=== PATIENT | male | born 1985 | race Caucasian/White ===

== ENCOUNTER → 2021-06-26 | Outpatient (CLI) | payer OTHER ==
[~2021-06-26] MED LIST: CLAR10CA3 PO; FERR325T19 PO; VITA500C24 PO
== END ==
LOC: M LABSMTC 10:49
PROVIDERS: ATTEND Anesthesiology
DX: Z01.818 Encounter for other preprocedural examination (principal); Z11.52 Encounter for screening for COVID-19

== ENCOUNTER 2021-07-01 12:12 | Day surgery (SDC) | payer OTHER ==
[~2021-07-01] VITALS: Ht 165.1 cm; Wt 84.4 kg
[~2021-07-01 12:12] MED LIST changes: +NS 1,000 ML IV ONE
--- OUTSIDE RECORDS SUMMARY | 2021-07-01 12:15 | CCD | Continuity of Care Document ---
Author Author Serafin COTTO MD Organization Unknown Address [address] [place] [id number] Phone [phone] Care Team Providers Care Guitar Maker Name Role Phone Omer Liriano M.D. AUTM [phone] Kathy Bullock AUTM [phone] Problems Description No Active Problems Social History Type Date Description Comments Sex Unknown ETOH Use 3 A Week Tobacco Use Start: Unknown Non Smoker Allergies, Adverse Reactions, Alerts Active Allergies Reaction Severity Comments Date Morphine 04/01/2021 Kefzol 04/01/2021 Medications Active Medications SIG Qnty Indications Ordering Provide r Date Ferosul 325(65Fe) mg Tablets tid Unknown Vitamin C 500mg Tablets Idt Unknown Immunizations Description No Information Available Vital Signs Date Vital Result Comment 04/01/2021 8:57am BP Systolic 120 mmHg BP Diastolic 82 mmHg Height 65 inches 5'5" Weight 190.00 lb BMI (Body Mass Index) 31.6 kg/m2 [place] Body Weight 136 lb Weight 86.184 kg BSA (Body Surface Area) 1.94 m2 Results Description No Information Available Procedures Date Code Description Status 04/01/2021 29290 Office/Outpatient New Low MDM 30 -44 Minutes Completed Medical Devices Description No Information Available Encounters Type Date Location Provider Dx Diagnosis Office Visit 04/01/2021 8:45a [facility] Kane Cotto MD D50.9 Iron deficiency anemia, unsp ecified K64.9 Unspecified hemorrhoids Assessments Date Code Description Provider 04/01/2021 D50.9 Iron deficiency anemia, unspecif ied Kane Cotto MD 04/01/2021 K64.9 Unspecified hemorrhoids Kane sylvester MD Plan of Treatment 04/01/2021 - Kane Cotto MD* D50.9 Iron deficiency anemia, unspecified * K64.9 Unspecified hemorrhoids * * Comments:* Pt with Hx frequent hemorrhoidal bleeding in past. has had banding. He was found to be iron deficient. Has had normal colonoscopy in 2019. never had EGD nor SB eval for anemia * Recommendations:* celiac marker and/or duodenal biopsy EGD Capsule if negative EGD Functional Status Description No Information Available Mental Status Description No Information Available Referrals Refer to Reason for Referral Status Appt Date Kane Cotto M.D. ANEMIA Scheduled 04/01/2021 [facility], Gastroenterology [address], [address] [place] [address] [phone]
--- OUTSIDE RECORDS SUMMARY | 2021-07-01 12:16 | CCD ---
Author Author [facility] Organization [facility] Address Unknown Phone Unavailable Care Team Providers Care Lactation Specialist Name Role Phone CHRISTINE COTTO MD Unavailable Unavailable CHRISTINE COTTO MD Unavailable Unavailable CHRISTINE COTTO MD Unavailable Unavailable CHRISTINE COTTO MD Unavailable Unavailable CHRISTINE COTTO MD Unavailable Unavailable CHRISTINE COTTO MD Unavailable Unavailable CHRISTINE COTTO MD Unavailable Unavailable CHRISTINE COTTO MD Unavailable Unavailable CHRISTINE COTTO MD Unavailable Unavailable CHRISTINE COTTO MD Unavailable Unavailable CHRISTINE COTTO MD Unavailable Unavailable CHRISTINE COTTO MD Unavailable Unavailable CHRISTINE COTTO MD Unavailable Unavailable CHRISTINE COTTO MD Unavailable Unavailable CHRISTINE COTTO MD Unavailable Unavailable CHRISTINE COTTO MD Unavailable Unavailable CHRISTINE COTTO MD Unavailable Unavailable CHRISTINE COTTO MD Unavailable Unavailable CHRISTINE COTTO MD Unavailable Unavailable CHRISTINE COTTO MD Unavailable Unavailable CHRISTINE COTTO MD Unavailable Unavailable CHRISTINE COTTO MD Unavailable Unavailable CHRISTINE COTTO MD Unavailable Unavailable CHRISTINE COTTO MD Unavailable Unavailable CHRISTINE COTTO MD Unavailable Unavailable CHRISTINE COTTO MD Unavailable Unavailable CHRISTINE COTTO MD Unavailable Unavailable CHRISTINE COTTO MD Unavailable Unavailable CHRISTINE COTTO MD Unavailable Unavailable REINDL, CHRISTINE BETH Unavailable Unavailable REINDL, CHRISTINE BETH Unavailable Unavailable REINDL, CHRISTINE BETH Unavailable Unavailable REINDL, CHRISTINE BETH Unavailable Unavailable REINDL, CHRISTINE BETH Unavailable Unavailable REINDL, CHRISTINE BETH Unavailable Unavailable REINDL, CHRISTINE BETH Unavailable Unavailable REINDL, CHRISTINE BETH Unavailable Unavailable REINDL, CHRISTINE BETH Unavailable Unavailable REINDL, CHRISTINE BETH Unavailable Unavailable REINDL, CHRISTINE BETH Unavailable Unavailable REINDL, CHRISTINE BETH Unavailable Unavailable REINDL, CHRISTINE BETH Unavailable Unavailable LETTIERE, A CHALINO PA Unavailable Unavailable LETTIERE, A CHALINO PA Unavailable Unavailable LETTIERE, A CHALINO PA Unavailable Unavailable LETTIERE, A CHALINO PA Unavailable Unavailable LETTIERE, A CHALINO PA Unavailable Unavailable LETTIERE, A CHALINO PA Unavailable Unavailable LETTIERE, A CHALINO PA Unavailable Unavailable LETTIERE, A CHALINO PA Unavailable Unavailable LETTIERE, A CHALINO PA Unavailable Unavailable LETTIERE, A CHALINO PA Unavailable Unavailable LETTIERE, A CHALINO PA Unavailable Unavailable LETTIERE, A CHALINO PA Unavailable Unavailable LETTIERE, A CHALINO PA Unavailable Unavailable LETTIERE, A CHALINO PA Unavailable Unavailable LETTIERE, A CHALINO PA Unavailable Unavailable LETTIERE, A CHALINO PA Unavailable Unavailable LETTIERE, A CHALINO PA Unavailable Unavailable LETTIERE, A CHALINO PA Unavailable Unavailable LETTIERE, A CHALINO PA Unavailable Unavailable LETTIERE, A CHALINO PA Unavailable Unavailable LETTIERE, A CHALINO PA Unavailable Unavailable LETTIERE, A CHALINO PA Unavailable Unavailable LETTIERE, A CHALINO PA Unavailable Unavailable LETTIERE, A CHALINO PA Unavailable Unavailable LETTIERE, A CHALINO PA Unavailable Unavailable LETTIERE, A CHALINO PA Unavailable Unavailable LETTIERE, A CHALINO PA Unavailable Unavailable LETTIERE, A CHALINO PA Unavailable Unavailable LETTIERE, A CHALINO PA Unavailable Unavailable LETTIERE, A CHALINO PA Unavailable Unavailable LETTIERE, A CHALINO PA Unavailable Unavailable Kobe, H RAISED PRINTER Unavailable Unavailable Kobe, H RAISED PRINTER Unavailable Unavailable Kobe, H RAISED PRINTER Unavailable Unavailable Kobe, H RAISED PRINTER Unavailable Unavailable Kobe, H RAISED PRINTER Unavailable Unavailable Kobe, H RAISED PRINTER Unavailable Unavailable Kobe, H RAISED PRINTER Unavailable Unavailable Kobe, H RAISED PRINTER Unavailable Unavailable Kobe, H RAISED PRINTER Unavailable Unavailable Kobe, H RAISED PRINTER Unavailable Unavailable Kobe, H RAISED PRINTER Unavailable Unavailable Kobe, H RAISED PRINTER Unavailable Unavailable Kobe, H RAISED PRINTER Unavailable Unavailable Kobe, H RAISED PRINTER Unavailable Unavailable Kobe, H RAISED PRINTER Unavailable Unavailable Kobe, H RAISED PRINTER Unavailable Unavailable Kobe, H RAISED PRINTER Unavailable Unavailable Kobe, H RAISED PRINTER Unavailable Unavailable Kobe, H RAISED PRINTER Unavailable Unavailable Kobe, H RAISED PRINTER Unavailable Unavailable Kobe, H RAISED PRINTER Unavailable Unavailable Kobe, H RAISED PRINTER Unavailable Unavailable Kobe, H RAISED PRINTER Unavailable Unavailable Kobe, H RAISED PRINTER Unavailable Unavailable Kobe, H RAISED PRINTER Unavailable Unavailable Kobe, H RAISED PRINTER Unavailable Unavailable Kobe, H RAISED PRINTER Unavailable Unavailable Kobe, H RAISED PRINTER Unavailable Unavailable Kobe, H RAISED PRINTER Unavailable Unavailable Kobe, H RAISED PRINTER Unavailable Unavailable Kobe, H RAISED PRINTER Unavailable Unavailable Kobe, H RAISED PRINTER Unavailable Unavailable Kobe, H RAISED PRINTER Unavailable Unavailable Kobe, H RAISED PRINTER Unavailable Unavailable Kobe, H RAISED PRINTER Unavailable Unavailable Kobe, H RAISED PRINTER Unavailable Unavailable Kobe, H RAISED PRINTER Unavailable Unavailable Kobe, H RAISED PRINTER Unavailable Unavailable Kobe, H RAISED PRINTER Unavailable Unavailable Kobe, H RAISED PRINTER Unavailable Unavailable Kobe, H RAISED PRINTER Unavailable Unavailable Kobe, H RAISED PRINTER Unavailable Unavailable Kobe, H RAISED PRINTER Unavailable Unavailable Kobe, H RAISED PRINTER Unavailable Unavailable Kobe, H RAISED PRINTER Unavailable Unavailable Kobe, H RAISED PRINTER Unavailable Unavailable Kobe, H RAISED PRINTER Unavailable Unavailable Kobe, H RAISED PRINTER Unavailable Unavailable Kobe, H RAISED PRINTER Unavailable Unavailable Kobe, H RAISED PRINTER Unavailable Unavailable Kobe, H RAISED PRINTER Unavailable Unavailable Kobe, H RAISED PRINTER Unavailable Unavailable Kobe, H RAISED PRINTER Unavailable Unavailable Kobe, H RAISED PRINTER Unavailable Unavailable Kobe, H RAISED PRINTER Unavailable Unavailable Kobe, H RAISED PRINTER Unavailable Unavailable Kobe, H RAISED PRINTER Unavailable Unavailable Kobe, H RAISED PRINTER Unavailable Unavailable Kobe, H RAISED PRINTER Unavailable Unavailable Doctor Provided, Family PHYS No Family Unavailable U navailable Jenny Reddy MD Unavailable Unavailable Jenny Reddy MD Unavailable Unavailable Jenny Reddy MD Unavailable Unavailable Jenny Reddy MD Unavailable Unavailable Jenny Reddy MD Unavailable Unavailable Jenny Reddy MD Unavailable Unavailable Jenny Reddy MD Unavailable Unavailable Jenny Reddy MD Unavailable Unavailable Jenny Reddy MD Unavailable Unavailable Jenny Reddy MD Unavailable Unavailable Jenny Reddy MD Unavailable Unavailable Jenny Reddy MD Unavailable Unavailable Jenny Reddy MD Unavailable Unavailable Jenny Reddy MD Unavailable Unavailable Jenny Reddy MD Unavailable Unavailable Jenny Reddy MD Unavailable Unavailable Jenny Reddy MD Unavailable Unavailable Jenny Reddy MD Unavailable Unavailable Jenny Reddy MD Unavailable Unavailable Jenny Reddy MD Unavailable Unavailable Jenny Reddy MD Unavailable Unavailable Jenny Reddy MD Unavailable Unavailable Jenny Reddy MD Unavailable Unavailable Jenny Reddy MD Unavailable Unavailable Jenny Reddy MD Unavailable Unavailable Jenny Reddy MD Unavailable Unavailable Jenny Reddy MD Unavailable Unavailable Jenny Reddy MD Unavailable Unavailable Jenny Reddy MD Unavailable Unavailable Jenny Reddy MD Unavailable Unavailable Jenny Reddy MD Unavailable Unavailable Jenny Reddy MD Unavailable Unavailable Jenny Reddy MD Unavailable Unavailable Jenny Reddy MD Unavailable Unavailable Jenny Reddy MD Unavailable Unavailable Jenny Reddy MD Unavailable Unavailable Jenny Reddy MD Unavailable Unavailable Jenny Reddy MD Unavailable Unavailable Jenny Reddy MD Unavailable Unavailable Jenny Reddy MD Unavailable Unavailable Jenny Reddy MD Unavailable Unavailable Jenny Reddy MD Unavailable Unavailable Jenny Reddy MD Unavailable Unavailable Jenny Reddy MD Unavailable Unavailable Jenny WILDER MD Unavailable Unavailable Jenny WILDER MD Unavailable Unavailable Jenny WILDER MD Unavailable Unavailable Jenny WILDER MD Unavailable Unavailable Julia, Ignacia Ghosh MD Unavailable Unavailable Julia, Ignacia Ghosh MD Unavailable Unavailable Julia, Ignacia Ghosh MD Unavailable Unavailable Julia, Ignacia Ghosh MD Unavailable Unavailable Julia, Ignacia Ghosh MD Unavailable Unavailable Julia, Ignacia Ghosh MD Unavailable Unavailable Julia, Ignacia Ghosh MD Unavailable Unavailable Julia, Ignacia Ghosh MD Unavailable Unavailable Julia, Ignacia Ghosh MD Unavailable Unavailable Julia, Ignacia Ghosh MD Unavailable Unavailable Julia, Ignacia Ghosh MD Unavailable Unavailable Julia, Ignacia Ghosh MD Unavailable Unavailable Julia, Ignacia Ghosh MD Unavailable Unavailable Julia, Ignacia Ghosh MD Unavailable Unavailable Julia, Ignacia Ghosh MD Unavailable Unavailable Julia, Ignacia Ghosh MD Unavailable Unavailable Julia, Ignacia Ghosh MD Unavailable Unavailable Julia, Ignacia Ghosh MD Unavailable Unavailable Julia, Ignacia Ghosh MD Unavailable Unavailable Julia, Ignacia Ghosh MD Unavailable Unavailable Julia, Ignacia Ghosh MD Unavailable Unavailable Julia, Ignacia Ghosh MD Unavailable Unavailable Julia, Ignacia Ghosh MD Unavailable Unavailable Julia, Ignacia Ghosh MD Unavailable Unavailable Julia, Ignacia Ghosh MD Unavailable Unavailable Julia, Ignacia Ghosh MD Unavailable Unavailable Julia, Ignacia Ghosh MD Unavailable Unavailable Julia, Ignacia Ghosh MD Unavailable Unavailable Julia, Ignacia Ghosh MD Unavailable Unavailable Julia, Ignacia Ghosh MD Unavailable Unavailable Julia, Ignacia Ghosh MD Unavailable Unavailable Julia, Ignacia Ghosh MD Unavailable Unavailable Julia, Ignacia Ghosh MD Unavailable Unavailable Julia, Ignacia Ghosh MD Unavailable Unavailable Julia, Ignacia Ghosh MD Unavailable Unavailable Julia, Ignacia Ghosh MD Unavailable Unavailable Julia, Ignacia Ghosh MD Unavailable Unavailable Julia, Ignacia Ghosh MD Unavailable Unavailable Julia, Ignacia Ghosh MD Unavailable Unavailable Julia, Ignacia Ghosh MD Unavailable Unavailable Julia, Ignacia Ghosh MD Unavailable Unavailable Julia, Ignacia Ghosh MD Unavailable Unavailable Julia, Ignacia Ghosh MD Unavailable Unavailable Julia, Ignacia Ghosh MD Unavailable Unavailable Julia, Ignacia Ghosh MD Unavailable Unavailable Julia, Ignacia Ghosh MD Unavailable Unavailable Julia, Ignacia Ghosh MD Unavailable Unavailable Julia, Ignacia Ghosh MD Unavailable Unavailable Julia, Ignacia Ghosh MD Unavailable Unavailable Julia, Ignacia Ghosh MD Unavailable Unavailable Julia, Ignacia Ghosh MD Unavailable Unavailable Julia, Ignacia Ghosh MD Unavailable Unavailable Julia, Ignacia Ghosh MD Unavailable Unavailable Julia, Ignacia Ghosh MD Unavailable Unavailable Julia, Ignacia Ghosh MD Unavailable Unavailable Julia, Ignacia Ghosh MD Unavailable Unavailable Julia, Ignacia Ghosh MD Unavailable Unavailable Julia, Ignacia Ghosh MD Unavailable Unavailable Julia, Ignacia Ghosh MD Unavailable Unavailable Julia, Ignacia Ghosh MD Unavailable Unavailable Julia, Ignacia Ghosh MD Unavailable Unavailable Julia, Ignacia Ghosh MD Unavailable Unavailable Julia, Ignacia Ghosh MD Unavailable Unavailable Julia, Ignacia Ghosh MD Unavailable Unavailable Julia, Ignacia Ghosh MD Unavailable Unavailable Julia, Ignacia Ghosh MD Unavailable Unavailable Julia, Ignacia Ghosh MD Unavailable Unavailable Julia, Ignacia Ghosh MD Unavailable Unavailable Julia, Ignacia Ghosh MD Unavailable Unavailable Julia, Ignacia Ghosh MD Unavailable Unavailable Julia, Ignacia Ghosh MD Unavailable Unavailable Julia, Ignacia Ghosh MD Unavailable Unavailable Julia, Ignacia Ghosh MD Unavailable Unavailable Julia, Ignacia Ghosh MD Unavailable Unavailable Julia, Ignacia Ghosh MD Unavailable Unavailable Julia, Ignacia Ghosh MD Unavailable Unavailable Julia, Ignacia Ghosh MD Unavailable Unavailable Re-disclosure Warning The records that you are about to access may contain information from federally-assisted alcohol or drug abuse programs. If such information is present, then the following federally mandated warning applies: This information has been disclosed to you from records protected by federal confidentiality rules (42 CFR part 2). The federal rules prohibit you from making any further disclosure of this information unless further disclosure is expressly permitted by the written consent of the person to whom it pertains or as otherwise permitted by 42 CFR part 2. A general authorization for the release of medical or other information is NOT sufficient for this purpose. The Federal rules restrict any use of the information to criminally investigate or prosecute any alcohol or drug abuse patient.The records that you are about to access may contain highly sensitive health information, the redisclosure of which is protected by Article 27-F of the [facility] Public Health law. If you continue you may have access to information: Regarding HIV / AIDS; Provided by facilities licensed or operated by the [facility] Office of Mental Health; or Provided by the [facility] Office for People With Developmental Disabilities. If such information is present, then the following [facility] mandated warning applies: This information has been disclosed to you from confidential records which are protected by state law. State law prohibits you from making any further disclosure of this information without the specific written consent of the person to whom it pertains, or as otherwise permitted by law. Any unauthorized further disclosure in violation of state law may result in a fine or residential sentence or both. A general authorization for the release of medical or other information is NOT sufficient authorization for further disc losure. Allergies and Adverse Reactions Type Description Substance Reaction Status Data Source(s ) Food allergy No Known Food Allergies No Known Food Allergies [facility] Drug allergy FSP - FRESH FROZEN PLASMA FSP - FRESH FROZEN PLASMA [facility] Drug allergy MORPHINE MORPHINE HIVES [facility] Encounters Encounter Providers Location Date Indications Data Source(s ) Outpatient Attender: CHRISTINE Voss/Misty/Ten/Crystal rolon 04/01/2021 08:45:00 AM EDT [facility] ([facility]) Outpatient Attender: Kathy Bullock NP 12/25/2020 09:23:00 AM E DT D64.9 [facility] D64.9 Outpatient Attender: Kathy Bullock NP 12/20/2020 09:27:00 AM E DT Z00.00 [facility] Z00.00 Outpatient Attender: Kathy Bullock NPReferrer: No Family Doctor Provided 12/19/2020 10:28[facility] CHALINO WILDER MDConsultant: Davina us MD 10/31/2020 01:00:51 PM EST - 11/03/2020 05:09:00 PM EST [facility] Patient discharged. Outpatient Attender: CHALINO WILDER MDCaliciaultant: Davina us MD 10/05/2020 06:10:56 PM EST - 10/06/2020 06:07:00 PM EST [facility] Patient discharged. Outpatient Attender: CHALINO mason 09/12/2020 02:45:00 PM EST [facility] ([facility]) Outpatient Attender: Felicia Reddy MD 08/24/2020 09:30:00 AM EST [facility] Outpatient Attender: Felicia Reddy MD 07/11/2020 12:35:00 PM EDT [facility] Immunizations Vaccine Date Status Description Data Source(s) Tdap 12/19/2020 12:00:00 AM EDT completed tetan us, diphtheria, acell pertussis 7yrs &up [facility] COVID-19 VACCINE Moderna 11/03/2020 12:00:00 AM EST completed NYSIIS Vaccine Series Complete: YESThis Data wa s Submitted to [facility] Via [employer]. COVID-19 VACCINE Moderna 10/06/2020 12:00:00 AM EST completed [facility]SIIS Vaccine Series Complete: NOThis Data was Submitted to [facility] [employer]. Medications Medication Brand Name Start Date Product Form Dose Route Admi nistrative Instructions Pharmacy Instructions Status Indications Reaction Description Data Source(s) 325 mg (65 mg iron) 12/26/2020 12:00:00 AM EDT tablet 90 TAKE ONE TABLET BY MOUTH THREE TIMES A DAY TAKE ONE TABLET BY MOUTH THREE TIMES A DAY SOLD: 12/27/2020 [facility] 500 mg 12/25/2020 12:00:00 AM EDT tablet 90 TAKE ONE TABLET BY MOUTH THREE TIMES A DAY TAKE ONE TABLET BY MOUTH THREE TIMES A DAY SOLD: 12/27/2020 [facility] 200 ACTUAT Albuterol 0.09 MG/ACTUAT Metered Dose Inhaler [Pr oAir] Proair HFA 09/12/2020 12:00:00 AM [facility] RESPIRATORY active [facility] Insurance Providers Payer name Policy type / Coverage type Policy ID Covered green party ID Covered green party's relationship to jade Policy Jade Plan Information [facility] [id number] xxxxxxxxx [id number] [facility] [id number] Self [id number] [facility] EX[facility] [id number] Self [id number] [facility] [id number] Self [id number] [facility] [id number] 18 [id number] [employer] [id number] SP [id number] [employer] Other 0 [id number] Self 0 [facility] [id number] SP [id number] Problems, Conditions, and Diagnoses Code Display Name Description Problem Type Effective Dates Data Source(s) Z23 Encounter for immunization Encounter for immunization Diagnosis 11/03/2020 04:48:00 PM [facility] Surgeries/Procedures Procedure Description Date Indications Data Source(s) OFFICE OUTPATIENT NEW 30 MINUTES 04/01/2021 12:00:00 A M EDT [facility] ([facility], ) OFFICE OUTPATIENT NEW 45 MINUTES 04/01/2021 12:00:00 A M EDT [facility] ([facility], ) Viral antigen assay (procedure) 08/24/2020 12:00:00 AM [facility] Viral antigen assay (procedure) 07/11/2020 12:00:00 AM [facility] Results ID Date Data Source [id number] 12/25/2020 10:00:00 AM [facility] Name Value Range Interpretation Code Description Data Shi rce(s) Supporting Document(s) Reticulocytes/100 erythrocytes in Blood by Automated count 1.6 % 0.39-1.8 N [facility] ID Date Data Source [id number] 12/25/2020 12:06:00 PM EDT [facility] Name Value Range Interpretation Code Description Data Shi rce(s) Supporting Document(s) Vitamin B12 571 pg/mL 211-911 N [facility] ID Date Data Source [id number] 12/25/2020 12:39:00 PM EDT [facility] Name Value Range Interpretation Code Description Data Shi rce(s) Supporting Document(s) Iron [Mass/volume] in Serum or Plasma 11 ug/dL 65-175 Below low normal [facility] Iron values may be falsely elevated in s emma samples frompatients treated with anticoagulants (e.g., hemodialysispatients) Iron binding capacity [Moles/volume] in Serum or Plasma 3 20-55 Below low normal [facility] Iron binding capacity [Mass/volume] in Serum or Plasma 429 ug/dL 250 -450 N [facility] ID Date Data Source [id number] 12/25/2020 12:39:00 PM T [facility] Name Value Range Interpretation Code Description Data Shi rce(s) Supporting Document(s) Folate [Mass/volume] in Serum or Plasma 21.0 ng/mL [facility] @Instrument will autodilute FOLATE INTERPRETATION NORMAL: GREATER THAN 5.38 INDETERMINATE: 3.38 - 5.38 DEFICIENT: LESS THAN 3.37 ID Date Data Source [id number] 12/25/2020 12:39:00 PM [facility] Name Value Range Interpretation Code Description Data Shi rce(s) Supporting Document(s) Ferritin [Mass/volume] in Serum or Plasma 3 ng/mL 22-322 Below low normal [facility] ID Date Data Source [id number] 12/20/2020 10:01:00 AM [facility] Name Value Range Interpretation Code Description Data Shi rce(s) Supporting Document(s) Leukocytes [#/volume] in Blood by Automated count 4.9 10*3/uL 4.45-10 .71 [facility] Erythrocytes [#/volume] in Blood by Automated count 4.75 10*6/uL 4.3- 6.1 [facility] Hemoglobin [Moles/volume] in Blood 8.1 g/dL 13-18 Below low no rmal [facility] Hematocrit [Volume Fraction] of Blood by Automated count 31.7 % 42-52 Below low normal [facility] Erythrocyte mean corpuscular volume [Ent itic volume] in Cord blood by Automated count 67 fL 80-96 Below low normal [facility] Erythrocyte mean corpuscular hemoglobin [Entitic mass] by Au tomated count 17 pg 27-31 Below low normal [facility] Erythrocyte mean corpuscular hemoglobin concentration [Mass/volume] in Cord blood 26 g/dL 33-37 Below low normal [facility] Erythrocyte distribution width [Entitic volume] by Automated cou nt 17 % 11-15 Above high normal [facility] Platelets [#/volume] in Blood by Automated count 422 10*3/uL 130-472 N [facility] Platelet mean volume [Entitic volume] in Blood 9.0 fL 9.1-13. 1 Below low normal [facility] Neutrophils/100 leukocytes in Blood by Automated count 59.7 % 41- 77 N [facility] Neutrophils [#/volume] in Blood by Automated count 2.9 U 1.7-7.6 N [facility] Lymphocytes/100 leukocytes in Blood by Automated count 28.6 % 14- 46 N [facility] Lymphocytes [#/volume] in Blood by Automated count 1.4 U 0.6-4.6 N [facility] Monocytes/100 leukocytes in Blood by Automated count 9.5 % 4-12 N [facility] Monocytes [#/volume] in Blood by Automated count 0.5 U 0.2-1.2 N [facility] Eosinophils/100 leukocytes in Blood by Automated count 1.6 % 0-7 N [facility] Eosinophils [#/volume] in Blood by Automated count 0.1 U 0.0-0.5 N [facility] Basophils/100 leukocytes in Blood by Automated count 0.4 % 0.4-1 .3 N [facility] Basophils [#/volume] in Blood by Automated count 0.0 U 0.0-0.2 N [facility] NUCLEATED RED BLOOD CELL 0 % [facility] NUCLEATED RED BLOOD CELL# 0 U [facility] Immature granulocytes [Presence] in Blood by Automated count 0-2 N [facility] Immature granulocytes [#/volume] in Blood by Automated count 0.0 U 0-0.1 N [facility] Manual Differential panel - Blood NO [facility] ID Date Data Source [id number] 12/20/2020 01:36:00 PM EDT [facility] Name Value Range Interpretation Code Description Data Shi rce(s) Supporting Document(s) Urea nitrogen [Mass/volume] in Serum or Plasma 15 mg/dL 9-23 N [facility] Sodium [Moles/volume] in Serum or Plasma 142 mmol/L 132-146 N [facility] Potassium [Moles/volume] in Serum or Plasma 4.5 mmol/L 3.5-5.5 N [facility] Chloride [Moles/volume] in Serum or Plasma 109 mmol/L 99-109 N [facility] Carbon dioxide, total [Moles/volume] in Serum or Plasma 27 mmol/L 20 -31 N [facility] Anion gap in Serum or Plasma 11 mmol/L 8-16 N [facility] Glucose [Mass/volume] in Serum or Plasma 101 mg/dL 74-106 N [facility] Creatinine 0.9 mg/dL 0.5-1.1 [facility] Glomerular filtration rate/1.73 sq M.pre dicted [Volume Rate/Area] in Serum or Plasma Greater Than 60 ABOVE 60 [facility] Alanine aminotransferase [Enzymatic acti vity/volume] in Serum or Plasma by With P-5'-P 31 U/L 10-49 N [facility] [facility] Aspartate aminotransferase [Enzymatic ac tivity/volume] in Serum or Plasma by With P-5'-P 13 U/L 0-33 N [facility] pital Alkaline phosphatase [Enzymatic activity/volume] in Serum or Plasma 84 U/L 45-129 N [facility] Calcium [Mass/volume] in Serum or Plasma 9.0 mg/dL 8.5-10.1 [facility] Bilirubin.total [Mass/volume] in Serum or Plasma 0.5 mg/dL 0.3-1.2 [facility] Albumin [Mass/volume] in Serum or Plasma by Bromocresol purple (BCP) dye binding method 4.0 g/dL 3.2-4.8 N [facility] ital Protein [Mass/volume] in Serum or Plasma 7.4 g/dL 5.7-8.2 [facility] ID Date Data Source [id number] 12/20/2020 01:36:00 PM EDT [facility] Name Value Range Interpretation Code Description Data Shi rce(s) Supporting Document(s) Triglycerides 120 mg/dL 0-[address] [facility] Cholesterol 179 mg/dL 120-200 N [facility] HDL Cholesterol 36 mg/dL [facility] HDL Less than 40 mg/dL: Major risk for CHDHDL Greater than 59 mg/dL: Low risk for CHD LDL Cholesterol, Calc 119 mg/dL 0-100 Above high normal [facility] ID Date Data Source [id number] 12/20/2020 01:36:00 PM EDT [facility] Name Value Range Interpretation Code Description Data Shi rce(s) Supporting Document(s) Thyrotropin [Units/volume] in Serum or Plasma by Detec tion limit <= 0.005 mIU/L 0.98 u[iU]/mL 0.35-5.[facility] Date Data Source [id number] 12/19/2020 10:53:00 AM EDT [facility] Patient Name: MONA PEPPER : 1985 Sex: M Pt Unit #: [id number] Location:[facility] Provider: Visit Date/Time: 12/19/20 Primary Insurance: [facility] Secondary Insurance: Self Pay Intake Vital Signs 12/19/20 10:53 Current Height 5 ft 4.75 in Current Weight 187 lb 0.6 oz Weight Measurement Method Standing Scale BMI 31.4 BP 118/60 Blood Pressure Location Lt brachial Position Sitting Respiration 18 Pulse 109 H Pulse Strength Normal Pulse Source Pulse Oximeter Pulse Oximetry (%) 98 Oxygen Delivery Method room air Intake Visit Reasons: Annual Physical Nurse Note: PT IS HERE TODAY TO EST AND ANNUAL PE PT IS DUE FOR TDAP Is patient in pain?: No Allergies morphine Allergy (Intermediate, Verified 09/15/19 13:56) Rash No Known Food Allergies Allergy (Unverified 12/19/20 10:55) kefzol Allergy (Int ermediate, Uncoded 09/15/19 13:56) Rash Medications - Last Reconciled 12/19/20 by Kathy Bullock NP No Known Home Medications Fall Risk History of falls: No Ambulatory Aid:: None Gait/Transferring:: Normal Medications:: No High Risk Medications PHQ-2/9 Over the last 2 weeks, how often have you been bothered by any of the following problems? 1. Little interest or pleasure in doing things: not at all 2. Feeling down, depressed, or hopeless: not at all Total score: 0 HIV Testing Offer - ages 13-64 Requirement for HIV testing offer been met?: Declines today. Pretest education received and acknowledged [facility] Annual Questionnaire Are you currently in recovery for alcohol or substance use?: No How many times in the past year have you had 5 or more drinks in a day?: None How many times in the past year have you used a recreational drug or used a prescription medication for nonmedical reasons?: None Coronavirus Screening Screening Are you currently positive or on isolation for COVID ?: No Do you have any NEW signs of one or more of the following?: no symptoms Do you have NEW signs of at least two of the following?: no symptoms HPI Adult Health Maintenance History of present illness HERE TO ESTABLISH. HAS NOT HAD FAMILY DOCTOR SINCE CHILDHOOD. USUALLY HEALTHY ANNUAL PE. FEELS WELL Are you having any pain?: No Dietary habits Has a well balanced diet: about half the time Eats a low calorie diet: about half the time Eats fruits and vegetables: 2-4 Number of meals per day: 3 Eats out: 1-3 times/week Reads food labels: seldom or never During the past year, weight has: remained stable Caffeine: Yes Number of caffeinated beverages per day: 1-2 ENERGY DRINKS/DAY Patient counseled regarding lifestyle changes to maintain healthy weight including healthy diet and importance of exercise: Yes Exercise Exercise frequency: 1-2 times per week Exercise duration per day: 30- 45 minutes/day Skin cancer risk assessment Protective factors: 1. Do you wear broad-spectrum sunscreen of SPF 15 or greater?: yes, 2. Do you wear hats or other shade-protective clothing?: yes and 3. Do you avoid going outdoors during midday hours (10 AM to 3 PM)?: yes Risk factors: 4. Do you do indoor tanning?: no, 5. Do you have fair skin?: no, 6. Do you have blue, hayes, or green eyes?: no, 7. Do you have blond or red hair?: no and 8. Do you have skin that argueta, freckles, reddens easily, or becomes painful in the sun?: no Counseling done: Yes Dental care Dental care: receives dental care and brushes STI risk assessment Questions for the patient: 1. Have you ever had sex (no matter whether oral, vaginal, or anal)?: yes, 2. Do you have sex with men?: no, 3. Do you have sex with women?: yes, 4. Do you have sex with both men and women?: no, 5. Have you had sex within the last 12 months?: yes, 6. Are you in a long-term relationship in which you and your partner only have sex with each other and no one else?: yes,7. Have you had a new partner within the last 12 months?: no, 8. Have you had multiple sexual partners within the last 12 months?: no, 9. Do you use condoms every time you have sex?: no, 10. Do you have sex while under the influence of alcohol or drugs?: no, 11. Do you have sex in exchange formoney or drugs?: no, 12. Do you use IV drugs?: no, 13. Do you have a sexual partner who has HIV, is bisexual, or uses IV drugs?: no, 14. Have you had a sexually t ransmitted infection?: no, 15. Have you requested testing for a sexually transmitted infection within the last 24 months?: no, 16. Have you been tested for HIV?: no and 17. Do you live in an adult correctional facility?: no Questions for the provider: 18. Does the patient live or receive medical care in a setting with a high prevalence for HIV or syphilis?: no Sexual preference and activity Sexual preference: prefers women Coronary Heart Disease risk assessment Risk factor: 1. Do you have diabetes?: no, 2. Do you have (or have you ever had) any of the following: CHD, CAD, heart attack, noncoronary atherosclerosis, abdominal aneurysm, peripheral artery disease, carotid artery stenosis?: no, 3. Do you have a close male relative who had cardiovascular disease (such as a heart attack) before the age of 50 or a female relative who had itbefore age 60?: yes (PATERNAL UNCLE), 4. Do you use tobacco in any form (cigarettes, e-cigarettes, cigars, etc.)?: no, 5. Do you have hypertension (high blood pressure)?: no and 6. Is your body mass index (BMI) 30 kg/m2 or greater?: yes Tobacco smoking status: Never smoker Alcohol Alcohol: frequency Frequency: on holidays and special occasions only Drugs/substances Substances: denies use Safety Car safety: wears a seatbelt and rides with intoxicated services delivery driver Home safety: water heater temperature set to <120 degrees, has working smoke detectors in home, has a fire extinguisher in the home and has a working carbon monoxide detector in the home Risk factor: 1. Was born in a country or region with a high prevalence of HBV?: no, 2. Was born in the [place] AND was not vaccinated as infant AND whose parents are from sub[place]aran [place], [place], [place] or the [place] (excluding [place] and [place])?: no, 3. Is HIV positive?: no, 4. Is or was an IV drug user?: no and 5. Is a man who has sex with men?: no [facility] Medical History (Updated 12/19/20 @ 11:37 by Kathy Bullock NP) Laceration of left thumb Subdural hematoma caused by concussion diphth,pertus(acell),tetanus Performing Provider: Kathy Bullock NP Administered by: Radha Carias on 12/19/20 11:00 Family History (System 09/15/19 @ 13:53 by Sara Roland) Mother No problems noted. Father No problems noted. Sister No problems noted. Social History (System 09/15/19 @ 13:53 by Sara Roland) Does the Patient have a Healthcare Proxy: No Does Patient have a DNR?: No Does Patient have a Living Will?: No Hx Recent Travel (where): No well-balanced diet: about half the time caffeine: Yes daily servings fruits/ve-4 eating out: 1-3 times/week reads food labels: seldom or never during the past year weight has: remained stable Smoking Status: Never smoker Review of Systems Const All systems reviewed are unremarkable except as noted in HPI and below Reports system reviewed and no additional complaints, except as docu mented, Denies chills, Denies fatigue, Denies fever(s) and Denies headache(s) Eyes Reports system reviewed and no additional complaints, except as documented ENT Reports system reviewed and no additional complaints, except as documented, Denies headache(s), Denies nasal congestion and Denies sore throat Card Denies chest pain and Denies dyspnea Resp Denies cough and Denies dyspnea GI Denies constipation, Denies heartburn, Denies diarrhea, Denies nausea and Denies vomiting Denies difficulty urinating, Denies difficulty with ejaculations and Denies erectile dysfunction Musc Denies myalgias and Denies arthralgias Skin/Breast Reports system reviewed and no additional complaints, except as documented Neuro Reports system reviewed and no additional complaints, except as documented, Denies headache(s) and Denies paresthesias Psych Denies anxiety and Denies depression Endo Reports system reviewed and no additional complaints, except as documented and Denies fatigue Alfonso/Lymph Reports system reviewed and no additional complaints, except as documented Aller/Immun Reports system reviewed and no additional complaints, except as documented Exam Const General: cooperative, healthy appearing, no acute distress, well developed and well groomed Nutritional Appearance: well nourished Orientation: alert, awake and oriented x3 HENMT Head: normal to inspection Ears: hearing grossly normal bilaterally Throat: posterior oropharynx normal Eyes Pupils: PERRL EOM: EOM intact bilaterally Neck Neck: normal visual inspection, full ROM and no lymphadenopathy Neck mass: No Thyroid: thyroid normal Carotids: normal carotid upstroke Lymphatic: no lymphadenopathy noted Resp Effort Inspection: normal respiratory effort Auscultation: clear to auscultation bilaterally Cardio Palpation: normal PMI Rate: regular rate Rhythm: regular rhythm Heart Sounds: S1 normal and S2 normal Pulses: normal peripheral pulses GI Inspection: Yes normal to inspection Palpation: soft Percussion: normal to percussion Auscultation: normal bowel sounds General: CVA tenderness Musc Cervical Spine: normal cervical lordosis Thoracic/Lumbar Spine: thoracic and lumbar spine normal to inspection Skin Lesions: no lesions Rashes: no rashes Immunizations diphth,pertus(acell),tetanus Performing Provider: Kathy Bullock NP Administered by: Radha Carias on 12/19/20 11:00 Dose Route Admin Location Lot Number Expiration Date NDC Manufactu rer 0.5 mL IM Right deltoid [id number] 08/04/22 79740-624-97 [employer] VIS Given Date VIS Provided VIS Publication Date 12/19/20 Single Vaccine 19 Eligibility Eligibility Date Funding Source Not [facility] Eligible 12/19/20 Private Assessment Plan Assessment Plan (1) Encounter for annual health examination: Code(s): Z00.00 - Encounter for general adult medical examination without abnormal findings (2) Annual physical exam: Status: Acute Code(s): Z00.00 - Encounter for general adult medical examination without abnormal findings Category: Medical Plan - Kathy Bullock RAISED PRINTER: CBC,CMP, LIPIDS BOOSTRIX TODAY RTC 1 YR Orders Other Orders: Orders: INJ - Tdap (> age 7) Today Z23 Coding Level of Care Code New Pt New Pt Lvl 3 (30-44 min) Patient Type New History Comprehensive Exam Comprehensive Medical Decision Making Moderate Complexity Diagnoses Encounter for annual health examination Z00.00 Annual physical exam Z00.00 Time Spent (min) 40 <Electronically signed by Kathy Bullock NP> 12/19/20 1139 Name Value Range Interpretation Code Description Data Shi rce(s) Supporting Document(s) ID Date Data Source [id number] 11/08/2020 12:00:00 AM EST [facility] Name Value Range Interpretation Code Description Data Shi rce(s) Supporting Document(s) SARS-CoV2 Rapid Antigen Negative [facility] This lab was ordered by [facility] and reported by [facility]. ID Date Data Source [id number] 08/24/2020 11:29:00 AM EST [facility] Normal result is "BinaxNow Covid-19 Ag n egative"BinaxNow Covid-19 Ag is a rapid lateral flowimmunochromatographic immunoassayThis test detects both viable(live) and non-viable, SARS-COVand SARS-COV-2.Positive test results do not differentiate between SARS-COVand [id number] results , from patients with symptom onset beyondseven days, should be treated as presumptive andconfirmation with a molecular assay, if necessary, forpatient managementIf the differentiation of specific SARS viruses and strainsis needed, additional testing, in consultation with stateand local public health departments, is required.SARS-CoV-2 Ag Resp Ql IA.rapid Name Value Range Interpretation Code Description Data Shi rce(s) Supporting Document(s) ID Date Data Source [id number] 08/22/2020 12:00:00 AM EST [facility] Name Value Range Interpretation Code Description Data Shi rce(s) Supporting Document(s) 2019-nCoV RNA XXX LADONNA+probe-Imp [facility] This lab was ordered by [facility] and reported by [employer]. ID Date Data Source [id number] 07/11/2020 01:29:00 PM EDT [facility] Normal result is "BinaxNow Covid-19 Ag n egative"BinaxNow Covid-19 Ag is a rapid lateral flowimmunochromatographic immunoassayThis test detects both viable(live) and non-viable, SARS-COVand SARS-COV-2.Positive test results do not differentiate between SARS-COVand [id number] results , from patients with symptom onset beyondseven days, should be treated as presumptive andconfirmation with a molecular assay, if necessary, forpatient managementIf the differentiation of specific SARS viruses and strainsis needed, additional testing, in consultation with stateand local public health departments, is required.BinaxNow Covid -19 Ag Negative Name Value Range Interpretation Code Description Data [facility] rce(s) Supporting Document(s) Procedure Social History Code Duration Value Status Description Data Source(s ) 12/19/2020 11:32:48 AM EDT Never smoker completed Never s [facility] Smoking 12/19/2020 11:32:00 AM EDT Never smoker completed Never s [facility] 11/20/2020 12:54:00 PM EST No completed No [facility] 11/20/2020 12:54:00 PM EST Yes completed Yes [facility] Smoking 09/12/2020 12:00:00 AM EST Patient has never smoked co mpleted Patient has never smoked [facility] ([facility], [facility]) Vital Signs ID Date Data Source UNK Name Value Range Interpretation Code Description Data Source(s) Systolic blood pressure 120 mm[Hg] 120 mm[Hg] M EDENT ([facility], ) Diastolic blood pressure 82 mm[Hg] 82 mm[Hg] [facility] ([facility], ) Body height 65 [in_i] 65 [in_i] [facility] ([facility], ) 5'5" Body weight 190.00 [lb_av] 190.00 [lb_av] MEDEN T ([facility]) Body mass index (BMI) [Ratio] 31.6 kg/m2 31.6 k g/m2 [facility] ([facility]) [place] body weight 136 [lb_av] 136 [facility]av[facility] Body weight 86.184 kg 86.184 kg [facility] ([facility]) Body surface area Derived from formula 1.94 m2 1.94 m2 [facility] ([facility]) Systolic blood pressure 124 mm[Hg] 124 mm[Hg] M EDENT ([facility], [facility]) Diastolic blood pressure 87 mm[Hg] 87 mm[Hg] [facility], [facility]) Heart rate 63 /min 63 /min [facility] ([facility], [facility]) Respiratory rate 16 /min 16 /min [facility] ( [facility], [facility]) Oxygen saturation in Arterial blood by Pulse oximetry 100 % 100 % [facility] ([facility], [facility]) Body temperature 98.7 [degF] 98.7 [degF] [facility] ([facility], [facility]) Body weight 180.00 [lb_av] 180.00 [lb_av] [facility]) ID Date Data Source [id number] 11/07/2020 02:00:03 PM [facility] Name Value Range Interpretation Code Description Data Source(s) WEIGHT RECORDED 180.00 pounds 180.00 pounds [facility] Height 65 Inches 065 Inches [facility] ID Date Data Source [id number] 10/17/2020 04:20:33 PM [facility] Name Value Range Interpretation Code Description Data Source(s) WEIGHT RECORDED 180.00 pounds 180.00 pounds [facility]
[2021-07-01] MEDS ORDERED: LIDOCAINE 2% 100MG/5ML SDV (FOR ANES.) As Ordered ONE (14:05)
[2021-07-01] MEDS ORDERED: propofoL 200 MG/20 ML VIAL As Ordered ONE (14:05)
--- NOTE | 2021-07-01 15:11 | ROOR ---
Patient Name: Serafin Rodriguez Procedure Date: 07/01/2021 2:45 PM Date of : 1985 Age: 35 Room: [facility] Gender: Male Note Status: Finalized Procedure: Upper GI endoscopy Indications: Iron deficiency anemia Providers: Kane Mcelroy MD Referring MD: Kathy Bullock NP Requesting Provider: Medicines: Monitored Anesthesia Care Complications: No immediate complications. Procedure: Pre-Anesthesia Assessment: - The heart rate, respiratory rate, oxygen saturations, blood pressure, adequacy of pulmonary ventilation, and response to care were monitored throughout the procedure. The Endoscope was introduced through the mouth, and advanced to the second part of duodenum. The upper GI endoscopy was accomplished without difficulty. The patient tolerated the procedure well. Findings: Esophagitis was found at the gastroesophageal junction. Biopsies were taken with a cold forceps for histology. A few small mucosal nodules were found at the gastroesophageal junction, 38 cm from the incisors. Biopsies were taken with a cold forceps for histology. A single 5 mm sessile polyp was found on the anterior wall of the gastric body. The polyp was removed with a cold snare. Resection and retrieval were complete. Scattered mild inflammation characterized by erythema and granularity was found in the first portion of the duodenum. Biopsies were taken with a cold forceps for histology. The exam was otherwise without abnormality. Biopsies for histology were taken with a cold forceps in the second portion of the duodenum and in the third portion of the duodenum for evaluation of celiac disease. Impression: - Esophagitis with inflammatory appearing mucosal nodularity found in the GE junction. Biopsied. - A single gastric polyp. Resected and retrieved. - Mild scattered duodenitis. Biopsied. - The examination was otherwise normal. - Biopsies were taken with a cold forceps for evaluation of celiac disease. Recommendation: - No ibuprofen, naproxen, or other non-steroidal anti-inflammatory drugs. - Use tylenol instead. - Telephone endoscopist for pathology results in 2 weeks. Procedure Code(s): --- Professional --- [id number], Esophagogastroduodenoscopy, flexible, transoral; with removal of tumor(s), polyp(s), or other lesion(s) by snare technique [id number], 59, Esophagogastroduodenoscopy, flexible, transoral; with biopsy, single or multiple Diagnosis Code(s): --- Professional --- D50.9, Iron deficiency anemia, unspecified K29.80, Duodenitis without bleeding K31.7, Polyp of stomach and duodenum K22.8, Other specified diseases of esophagus K21.0, Gastro-esophageal reflux disease with esophagitis CPT copyright 2019 [employer]. All rights reserved. The codes documented in this report are preliminary and upon crystal mounter review may be revised to meet current compliance requirements. Kane Mcelroy MD Kane Mcelroy MD 07/01/2021 3:11:18 PM Electronically signed by Kane Mcelroy MD Number of Addenda: 0 Note Initiated On: 07/01/2021 2:45 PM Estimated Blood Loss: Estimated blood loss: none.
[2021-07-01] MEDS ORDERED: fentaNYL 100 MCG/2 ML INJECTION (J3010) As Ordered ONE (15:29)
[2021-07-01 15:30] VITALS: BP 136/96
== END 2021-07-01 15:40 | disposition home or self-care (01) ==
LOC: M OPP 12:12
PROVIDERS: ATTEND Internal Medicine Gastroenterology
DX: K31.7 Polyp of stomach and duodenum (principal); K22.89 Other specified disease of esophagus; K21.00 Gastro-esophageal reflux disease with esophagitis, without bleeding; K29.80 Duodenitis without bleeding; D50.9 Iron deficiency anemia, unspecified
CPT/HCPCS: 43239; 43251; 88305; 88342; J3010

== ENCOUNTER → 2021-08-09 | Outpatient (CLI) | payer OTHER ==
[~2021-08-09] MED LIST changes: -NS 1,000 ML IV ONE
== END ==
LOC: M LAB 10:21
PROVIDERS: ATTEND Internal Medicine Gastroenterology
DX: D50.9 Iron deficiency anemia, unspecified (principal)